=== PATIENT | female | born 1990 ===

== ENCOUNTER 2019-03-15 14:57 | Emergency (ER) | payer MEDICAID ==
[2019-03-15 15:25] VITALS: BP 139/78
--- NOTE | 2019-03-15 15:28 | Emergency Department Report ---
Blank Doc - Documentation Documentation: 28-year-old female that presents with left pelvic pain. Denies any vaginal bl eeding. Stated is about 4 weeks . This initial assessment/diagnostic orders/clinical plan/treatment(s) is/are subject to change based on patient's health status, clinical progression and re- assessment by fellow clinical providers in the ED. Further treatment and workup at subsequent clinical providers discretion. Patient/guardians urged not to elope from the ED as their condition may be serious if not clinically assessed and managed. Initial orders include: 1- Patient sent to [facility] for further evaluation and treatment 2- labs 3- US OB
[2019-03-15 17:03] LABS: Bacteria,Urine 1+ /HPF (Negative); Bilirubin,Urine NEG (Negative); Blood,Urine NEG (Negative); Color,Urine Yellow (Yellow); Mucus,Urine 2+ /HPF; Protein,Urine <15 mg/dL mg/dL (Negative); Urobilinogen,Urine < 2.0 mg/dL (<2.0)
--- NOTE | 2019-03-15 18:52 | Ultrasound Report ---
OB ultrasound. 03/15/2019. HISTORY: Pelvic pain. FINDINGS: Imaging was performed by transabdominally and endovaginally. The uterus measures 7 x 4.1 x 5.5 cm. The endometrial stripe measures 7 mm. Negative for intrauterine . Right ovary measures 2.6 x 2 x 2.7 cm. Left ovary measures 2.5 x 1.4 x 2.4 cm. Both ovaries demonstra te flow. Negative for adnexal mass or fluid. IMPRESSION: 1. Negative for intrauterine . 2. Adnexa are normal in appearance. Signer Name: Pool Maradiaga MD Signed: 03/15/2019 6:48 PM Workstation Name: [id number]
--- NOTE | 2019-03-15 20:47 | Emergency Department Report ---
ED Female HPI - General Chief complaint: Abdominal Pain Stated complaint: 4WKS /PAIN Time Seen by Provider: 03/15/19 15:27 Source: patient Mode of arrival: Ambulatory Limitations: No Limitations - History of Present Illness Initial comments: Patient is a 28-year-old female presents emergency room with complaints of left- sided pelvic pain that began a couple days ago. Associated lower back pain and white vaginal discharge with an odor. She denies any nausea, vomiting, diarrhea, fever, dysuria, vaginal bleeding. She states that her last sexual cycle was February 11. Denies any history of STDs. has not seen an DATA WAREHOUSING ENGINEER for this . She states she has a past medical history of asthma. /P:1/A:1 - Related Data Allergies Allergy/AdvReac Type Severity Reaction Status Date / Time hydrocodone Allergy Itching Verified 03/15/19 15:00 ED Review of Systems ROS: Stated complaint: 4WKS /PAIN Other details as noted in HPI Comment: All other systems reviewed and negative ED Past Medical Hx - Past Medical History Previous Medical History?: Yes Hx Asthma: Yes - Surgical History Past Surgical History?: Yes Hx Appendectomy: Yes - Social History Smoking Status: Never Smoker Substance Use Type: Alcohol, Marijuana ED Physical Exam - General Limitations: No Limitations General appearance: alert, in no apparent distress - Head Head exam: Present: atraumatic, normocephalic - Eye Eye exam: Present: normal appearance - ENT ENT exam: Present: mucous membranes moist - Neurological Exam Neurological exam: Present: alert, oriented X3 - Psychiatric Psychiatric exam: Present: normal affect, normal mood - Skin Skin exam: Present: warm, dry, intact ED Course Vital Signs 03/15/19 15:03 Temperature 98.3 F Pulse Rate 71 Respiratory 16 Rate Blood Pressure 139/78 O2 Sat by Pulse 100 Oximetry ED Medical Decision Making - Lab Data Lab Results 03/15/19 03/15/19 Range/Units 07:29 Unknown HCG, Quant 266.3 H (0-4) mIU/mL Urine Color Yellow (Yellow) Urine Turbidity Clear (Clear) Urine pH 6.0 (5.0-7.0) Ur Specific [place] 1.027 (1.003-1.030) Urine Protein <15 mg/dl (Negative) mg/dL Urine Glucose (UA) Neg (Negative) mg/dL Urine Ketones Neg (Negative) mg/dL Urine Blood Neg (Negative) Urine Nitrite Neg (Negative) Urine Bilirubin Neg (Negative) Urine Urobilinogen < 2.0 (<2.0) mg/dL Ur Leukocyte Esterase Neg (Negative) Urine WBC (Auto) 1.0 (0.0-6.0) /HPF Urine RBC (Auto) 5.0 (0.0-6.0) /HPF U Epithel Cells (Auto) 2.0 (0-13.0) /HPF Urine Bacteria (Auto) 1+ (Negative) /HPF Urine Mucus 2+ /HPF - Radiology Data Radiology results: report reviewed OB ultrasound. 03/15/2019. HISTORY: Pelvic pain. FINDINGS: Imaging was performed by transabdominally and endovaginally. The uterus measures 7 x 4.1 x 5.5 cm. The endometrial stripe measures 7 mm. Negative for intrauterine . Right ovary measures 2.6 x 2 x 2.7 cm. Left ovary measures 2.5 x 1.4 x 2.4 cm. Both ovaries demonstrate flow. Negative for adnexal mass or fluid. IMPRESSION: 1. Negative for intrauterine . 2. Adnexa are normal in appearance. Signer Name: Pool Maradiaga MD Signed: 03/15/2019 6:48 PM Workstation Name: [id number] Transcribed By: ES Dictated By: Pool Maradiaga MD Electronically Authenticated By: Pool Maradiaga MD Signed Date/Time: 03/15/19 1848 - Medical Decision Making Patient is a 28-year-old female presents emergency room with complaints of left- sided pelvic pain that began a couple days ago. Associated lower back pain and white vaginal discharge with an odor. She denies any nausea, vomiting, diarrhea, fever, dysuria, vaginal bleeding. She states that her last sexual cycle was February 11. Denies any history of STDs. has not seen an DATA WAREHOUSING ENGINEER for this . She states she has a past medical history of asthma. /P:1/A:1. hcg quant is 266. UA without evidence of UTI. US: 1. Negative for intrauterine . 2. Adnexa are normal in appearance. Discussed with patient that she would need to have a repeat hCG Quant in 2 days, advised that she could return to the emergency room or see an DATA WAREHOUSING ENGINEER for this. Discussed with patient that we would need to do a pelvic examination today and have swabs to rule out PID, STD, vaginitis. 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 Discussed with patient the risks including worsening infection, PID, infertility, miscarriage. Patient verbalized understanding. pt eloped prior to signing AMA form and prior to receiving paperwork with [facility]. AMA: the patient is alert and oriented 3 the patient exhibits decision-making capacity. The patient is free from distracting injury. The risk of leaving without a complete medical examination, and AGAINST MEDICAL ADVICE were explained to the patient, and included , disability, paralysis, permanent quality loss of life. The patient verbalized understanding to these, and was able to articulate these risks in their own words. - Differential Diagnosis IUP, ectopic, miscarriage, STD, PID, ovarian cyst, vaginitis, UTI Critical care attestation.: If time is entered above; I have spent that time in minutes in the direct care of this critically ill patient, excluding procedure time. ED Disposition Clinical Impression: Pelvic pain, Vaginal discharge, Threatened miscarriage Disposition: DC-07 LEFT AGAINST MED ADVICE Is pt being admited?: No Does the pt Need Aspirin: No Condition: Undetermined Instructions: Threatened Miscarriage (ED) Additional Instructions: please follow up as soon as possible. may be seen by an DATA WAREHOUSING ENGINEER or return to the emergency room. need to have a pelvic examination, repeat hcg quant, and close follow up. today your quant was 266. you have decided to leave against medical advice today and the risks were explained to you including miscarriage, worsening infection, pelvic inflammatory disease, and infertility. Referrals: [facility] [Provider Group] - [facility] [Provider Group] - [facility] [Provider Group] - [facility] Forms: AMA Form Time of Disposition: 20:44 Print Language: SLOVAK
== END 2019-03-15 20:52 | disposition left against medical advice (07) ==
LOC: EDBD → ED 14:57
DX: O20.0 Threatened abortion (principal); O99.511 Diseases of the respiratory system complicating pregnancy, first trimester; O99.321 Drug use complicating pregnancy, first trimester; F12.90 Cannabis use, unspecified, uncomplicated; Z88.5 Allergy status to narcotic agent; Z3A.01 Less than 8 weeks gestation of pregnancy
CPT/HCPCS: 36415; 76801; 76817; 81001; 84702

== ENCOUNTER 2019-03-19 13:47 | Emergency (ER) | payer MEDICAID ==
[2019-03-19 16:30] LABS: Basophils % (Auto) 0.4 % (0.0-1.8); Eosinophils # (Auto) 0.1 K/mm3 (0.0-0.4); Eosinophils % (Auto) 1.4 % (0.0-4.3); Hematocrit 40.5 % (30.3-42.9); Hemoglobin 13.4 gm/dl (10.1-14.3); Lymphocytes % (Auto) 42.1 % (13.4-35.0); Mean Corpuscular HGB Conc 33 % (30-34); Mean Corpuscular Volume 88 fl (79-97); Monocytes # (Auto) 0.4 K/mm3 (0.0-0.8); Monocytes % (Auto) 8.5 % (0.0-7.3); Platelet Count 289 K/mm3 (140-440); Red Blood Count 4.62 M/mm3 (3.65-5.03); Red Cell Distribution Width 12.8 % (13.2-15.2)
[2019-03-19 17:02] LABS: Bilirubin,Urine Negative (Negative); Blood,Urine Negative (Negative); Color,Urine Yellow (Yellow); Urobilinogen,Urine < 2.0 mg/dL (<2.0)
--- NOTE | 2019-03-19 17:40 | Ultrasound Report ---
PELVIC ULTRASOUND INDICATION: Pelvic pain, vaginal bleeding, COMPARISON: 03/15/2019 TECHNIQUE: Transabdominal and endovaginal FINDINGS: Uterus measures 7.7 x 4.9 x 5.6 cm. Endometrial stripe measures 13 mm and is mildly heterog enous. A tiny saclike structure is seen in the fundal endometrium which is not clearly a gestational sac but if so would correlate with dating of 5 weeks 1 day which would correlate with clinical dating .. No obvious contents are seen. No cardiac activity was reported by the technologist. No other uteri ne abnormalities are seen. Left ovary measures 2.9 cm in length and shows minimal follicular-type cysts. The right ovary measure s 3.8 cm in length and shows a poorly defined apparent thick-walled cyst without significant vascular ity and with only minimal internal echogenicity. No free fluid is seen. IMPRESSION: Intrauterine still cannot be confirmed. Questionably there is a tiny gestationa l sac but this cannot be verified. There is a thick-walled cystic structure in the right ovary but wi thout vascularity which probably is a corpus luteum cyst rather than an ectopic . However, t he results of the study cannot exclude ectopic and clinical correlation and follow-up are s uggested. Signer Name: Eddie Aguilar MD Signed: 03/19/2019 5:35 PM Workstation Name: [id number]
[2019-03-19 18:38] LABS: Mucus,Urine 2+ /HPF
--- NOTE | 2019-03-19 18:39 | Emergency Department Report ---
ED HPI - General Chief complaint: Abdominal Pain Stated complaint: DOC ORDERED ULTRA SOUND Time Seen by Provider: 03/19/19 17:38 Source: patient Mode of arrival: Ambulatory Limitations: No Limitations - History of Present Illness Initial comments: 28-year-old female presents to ED with left lower quadrant pain 1 week. Patient has had a positive test. States she was seen in this ER 1 week ago, had an ultrasound done, no IUP was seen and was told that it was because she was too early in her . The patient followed up with Dr. Schwartz in his office today, and was instructed to return to the ER for repeat ultrasound. Patient reports continued left lower quadrant pain, denies any vaginal bleeding. MD Complaint: abdominal pain -: week(s) (1) Location: abdomen Radiation: none Severity: mild Quality: cramping Consistency: constant Improves with: none Worsens with: none Associated symptoms: denies: vaginal bleeding Vaginal bleeding: none :: Yes OB History - Previous Pregnancies: miscarriage (x2) - Related Data : 4 Para: 1 Ab: 2 Allergies Allergy/AdvReac Type Severity Reaction Status Date / Time hydrocodone Allergy Itching Verified 03/15/19 15:00 ED Review of Systems ROS: Stated complaint: DOC ORDERED ULTRA SOUND Other details as noted in HPI Comment: All other systems reviewed and negative Constitutional: denies: chills, fever Gastrointestinal: abdominal pain Genitourinary: other (denies vaginal bleeding) ED Past Medical Hx - Past Medical History Previous Medical History?: Yes Hx Asthma: Yes - Surgical History Past Surgical History?: Yes Hx Appendectomy: Yes - Social History Smoking Status: Never Smoker Substance Use Type: Alcohol, Marijuana ED Physical Exam - General Limitations: No Limitations General appearance: alert, in no apparent distress - Head Head exam: Present: atraumatic, normocephalic - Eye Eye exam: Present: normal appearance, PERRL, EOMI - ENT ENT exam: Present: mucous membranes moist - Neck Neck exam: Present: normal inspection - Respiratory Respiratory exam: Present: normal lung sounds bilaterally. Absent: respiratory distress - Cardiovascular Cardiovascular Exam: Present: regular rate, normal rhythm - GI/Abdominal GI/Abdominal exam: Present: soft, tenderness (very mild left lower quadrant tenderness). Absent: distended - Extremities Exam Extremities exam: Present: normal inspection - Neurological Exam Neurological exam: Present: alert, oriented X3 - Psychiatric Psychiatric exam: Present: normal affect, normal mood - Skin Skin exam: Present: warm, dry, intact, normal color ED Course Vital Signs 03/19/19 03/19/19 14:30 19:12 Temperature 98.7 F Pulse Rate 80 72 Respiratory 18 17 Rate Blood Pressure 131/82 Blood Pressure 123/65 [Left] O2 Sat by Pulse 98 97 Oximetry ED Medical Decision Making - Lab Data Result diagrams: 03/19/19 15:43 - Radiology Data Radiology results: report reviewed, image reviewed - Medical Decision Making Hcg currently 1,533, compared to a level of 266 four days ago. Still unable to locate an IUP. Also no adnexal masses seen. Pt has appt with OB on Friday, Mar 22. Advised pt that she will need repeat hormone level and repeat US, either with her OB or can return to the ER. Attempted to reach Dr Schwartz, no return call. - Differential Diagnosis ectopic, miscarriage, IUP Critical care attestation.: If time is entered above; I have spent that time in minutes in the direct care of this critically ill patient, excluding procedure time. ED Disposition Clinical Impression: Early stage of , Abdominal pain, left lower quadrant Disposition: DC-01 TO HOME OR SELFCARE Is pt being admited?: No Condition: Stable Instructions: Abdominal Pain in (ED) Referrals: CONTRERAS SCHWARTZ MD [Staff Physician] - 3-5 Days Time of Disposition: 19:09
[2019-03-19 19:14] VITALS: BP 123/65
== END 2019-03-19 19:14 | disposition home or self-care (01) ==
LOC: ED 13:47
DX: Z34.00 Encounter for supervision of normal first pregnancy, unspecified trimester (principal); J45.909 Unspecified asthma, uncomplicated; F12.10 Cannabis abuse, uncomplicated; Z88.5 Allergy status to narcotic agent
CPT/HCPCS: 76801; 76817; 81001; 84702; 85025; 86900; 86901; 99284